=== PATIENT | male | born 1985 | race African-American/Black ===

== ENCOUNTER 2016-12-31 11:36 | Inpatient (IN) | payer SELFPAY ==
[2016-12-31] MEDS ORDERED: Ondansetron ODT TAB* 4 MG PO ONE ×2 (12:41→17:03)
[2016-12-31] MEDS: NS 0.9% 1000 ML* 2,000 ML IV ONE ×2 (13:35→14:27)
[2016-12-31 13:51] LABS: Hematocrit 29 % (42-52); Hemoglobin 9.7 g/dl (14.0-18.0); Mean Corpuscular HGB Conc 34 g/dl (31-36); Mean Corpuscular Hemoglobin 30 pg (27-31); Mean Corpuscular Volume 89 fL (80-94); Mean Platelet Volume 11 um3 (7.4-10.4); Red Blood Count 3.25 10^6/ul (4.0-5.4); Red Cell Distribution Width 14 % (10.5-15); White Blood Count 11.2 10^3/ul (3.5-10.8)
[2016-12-31 14:02] LABS: ALT 15 U/L (7-52); AST 14 U/L (13-39); Alkaline Phosphatase 31 U/L (34-104); Amylase 53 U/L (29-103); Anion Gap 6 mmol/L (2-11); Blood Urea Nitrogen 20 mg/dL (6-24); C Reactive Protein < 1.00 mg/L (< 5.00); CO2 Carbon Dioxide 29 mmol/L (22-32); Calcium 9.1 mg/dL (8.6-10.3); Chloride 103 mmol/L (101-111); EGFR African American 86.6 (>60); EGFR Non-African American 67.4 (>60); Globulin 2.4 g/dL (2-4); Glucose 94 mg/dL (70-100); Lipase 10 U/L (11.0-82.0); Magnesium 1.7 mg/dL (1.9-2.7); Sodium 138 mmol/L (133-145); Total Protein 6.4 g/dL (6.4-8.9)
--- NOTE | 2016-12-31 14:03 | ED ---
Influenza-Like Illness - HPI Summary HPI Summary: Patient presents with nausea, diarrhea, body aches, and chills for two days. He has been unable to keep fluids down or eat. He has tried resting without relief. He denies fever, [place], cough, sore throat or cough. He has mild diffuse abdominal pain he relates to wretching. He denies known ill contacts. - History of Current Complaint Chief Complaint: EDNauseaVomitDiarrh Time Seen by Provider: 12/31/16 12:00 Hx Obtained From: Patient, Family/Boat Wrapper Onset/Duration: Gradual Onset Severity: Moderate Associated Signs & Symptoms: Vomiting, Diarrhea - Allergy/Home Medications Allergies/Adverse Reactions: Allergies Allergy/AdvReac Type Severity Reaction Status Date / Time No Known Allergies Allergy Verified 12/31/16 13:25 PMH/Surg Hx/FS Hx/Imm Hx Previously Healthy: Yes Infectious Disease History: No Infectious Disease History: Denies: Traveled Outside the [place] in Last 30 Days - Family History Known Family History: Positive: None - Social History Occupation: Employed Part-time Lives: With Family Alcohol Use: Occasionally Substance Use Type: Reports: None Smoking Status (MU): Current Some Day Smoker Cessation Counseling: Patient Advised to Stop Review of Systems Positive: Chills, Fatigue Negative: Sore Throat, Ear Ache Negative: Chest Pain Negative: Shortness Of Breath, Cough Positive: Abdominal Pain, Vomiting, Diarrhea, Nausea Positive: no symptoms reported Negative: Myalgia Negative: Headache All Other Systems Reviewed And Are Negative: Yes Physical Exam Triage Information Reviewed: Yes Vital Signs On Initial Exam: Initial Vitals Temp Pulse Resp BP Pulse Ox 97.0 F 115 17 158/83 100 12/31/16 11:39 12/31/16 11:39 12/31/16 11:39 12/31/16 11:39 12/31/16 11:39 Vital Signs Reviewed: Yes Appearance: Positive: Well-Appearing, Well-Nourished, Pain Distress Skin: Positive: Warm, Skin Color Reflects Adequate Perfusion, Dry, Soft Head/Face: Positive: Normal Head/Face Inspection Eyes: Positive: EOMI, SHAHRIAR, Conjunctiva Clear ENT: Positive: Hearing grossly normal, Pharynx normal, TMs normal Neck: Positive: Supple, Nontender, No Lymphadenopathy Respiratory/Lung Sounds: Positive: Clear to Auscultation, Breath Sounds Present Cardiovascular: Positive: Tachycardia Abdomen Description: Positive: Soft. Negative: Nontender - mild diffuse tenderness, CVA Tenderness (R), CVA Tenderness (L), Distended, Guarding, McBurney's Point Tenderness Bowel Sounds: Positive: Present Musculoskeletal: Positive: Strength/ROM Intact. Negative: Edema Left, Edema Right Neurological: Positive: Sensory/Motor Intact, Alert, Oriented to Person Place, Time, NV Bundle Intact Distally, Normal Gait Psychiatric: Positive: Affect/Mood Appropriate AVPU Assessment: Alert Diagnostics - Vital Signs Vital Signs Temp Pulse Resp BP Pulse Ox 12/31/16 13:00 19 123/68 12/31/16 12:44 104 12 100 12/31/16 11:39 97.0 F 115 17 158/83 100 - Laboratory Lab Results: Lab Results 12/31/16 Range/Units 13:37 WBC 11.2 H (3.5-10.8) 10^3/ul RBC 3.25 L (4.0-5.4) 10^6/ul Hgb 9.7 L (14.0-18.0) g/dl Hct 29 L (42-52) % MCV 89 (80-94) fL MCH 30 (27-31) pg MCHC 34 (31-36) g/dl RDW 14 (10.5-15) % Plt Count 146 L (150-450) 10^3/ul MPV 11 H (7.4-10.4) um3 Neut % (Auto) 80.7 (38-83) % Lymph % (Auto) 14.6 L (25-47) % [place]da % (Auto) 4.2 (1-9) % Eos % (Auto) 0.2 (0-6) % Baso % (Auto) 0.3 (0-2) % Absolute Neuts (auto) 9.1 H (1.5-7.7) 10^3/ul Absolute Lymphs (auto) 1.6 (1.0-4.8) 10^3/ul Absolute Monos (auto) 0.5 (0-0.8) 10^3/ul Absolute Eos (auto) 0 (0-0.6) 10^3/ul Absolute Basos (auto) 0 (0-0.2) 10^3/ul Absolute Nucleated RBC 0 10^3/ul Nucleated RBC % 0 Result Diagrams: 12/31/16 13:37 12/31/16 13:37 Lab Statement: Any lab studies that have been ordered have been reviewed, and results considered in the medical decision making process. Re-Evaluation - Re-Evaluation First Eval Re-Evaluation Time: 14:40 Change: Improved - patient feeling better. Asking for food. Second Eval Change: Worse - patient tried eating with continued nausea, tachycardia and hypotension Third Eval Re-Evaluation Time: 16:50 Change: Improved - Patient is able to drink lane raj without nausea Flu Symptom Course/Dx - Diagnoses Differential Diagnosis/HQI/PQRI: Positive: Bronchitis, Broncholiolitis, Influenza, Pneumonia, Upper Respiratory Infection Provider Diagnoses: Gastroenteritis Discharge - Discharge Plan Condition: Stable Disposition: HOME Prescriptions: Ondansetron ODT TAB* [Zofran 4 MG Odt TAB*] 4 mg PO Q6H PRN #20 tab.odt PRN Reason: Nausea Patient Education Materials: Gastroenteritis (ED) Additional Instructions: Use the anti-nausea medication as needed to be able to drink and eat. Get plenty of rest. Return to the emergency department if symptoms worsen.
[2016-12-31 14:04] LABS: Troponin I 0.01 ng/mL (<0.04)
[2016-12-31] MEDS ORDERED: Metoclopramide IV* 5 MG/ML 2 ML VIAL IV ONE (15:45)
[2016-12-31] MEDS ORDERED: NS 0.9% 1000 ML* 1,000 ML IV ONE ×2 (15:45→18:00)
[2016-12-31] MEDS ORDERED: Ketorolac INJ* 30 MG/ML 1 ML VIAL IV ONE (16:03)
[2016-12-31] MEDS ORDERED: Pantoprazole IV* 40 MG IV ONE (18:28)
[2016-12-31] MEDS ORDERED: Morphine INJ* 2 MG/ML 1 ML SYRINGE IV ONE (18:36)
--- NOTE | 2016-12-31 18:44 | PN ---
Progress Note - Progress Note Note: Patient was a patient of Rodolfo Washburn at shift change patient was signed out to me however was being discharged. Upon discharge patient got up to use the bathroom and had an episode of diarrhea that contained blood described as shravan colored and what appeared to be "coffee ground like" per Manjula RN and patient. Patient also had episode of emesis that appeared the same as stool. Was not visualized. Patient also complained of feeling as though he was going to pass out, became tachycardic, hypotensive and diaphoretic. Patient felt as though he was going to pass out and his diffuse abdominal pain worsened. Looking at labs, patient did have low H&H for his age. Stool culture, blood culture and occult blood obtained. Spoke with Dr Yin at 18:30 who will consult and admit. Given morphine for pain, protonix drip and fluids. PE: Cardiac: RRR Resp: Clear normal breath sounds throughout Abdomen: Bowel sounds present, discomfort on palpation throughout, more in epigastric area. No bruits or pulsatile mass. No radiation of pain.
--- NOTE | 2016-12-31 18:54 | ADMNOTE ---
Subjective Date of Service: 12/31/16 Interval History: ADMISSION HISTORY AND PHYSICAL EXAM: Allergies Allergy/AdvReac Type Severity Reaction Status Date / Time No Known Allergies Allergy Verified 12/31/16 13:25 Home Medications Medication Instructions Recorded Confirmed Type Ondansetron ODT TAB* [Zofran 4 MG 4 mg PO Q6H PRN #20 tab.odt 12/31/16 Rx Odt TAB*] HPI: The patient was in his usual state of health until 2 days ago. He developed diarrhea, 4-5 time per day which became bloody. Diffuse abd pain. He denies use of NSAID's including ASA, no alcohol use. Occ cigarette, not daily. Social History: Findings - Lives with girlfrind. 1 child by previous relationship. Occ cigarette. No alcohol abuse. Unemployed. Mother is Past Medical History: Findings - Surgery [facility] about 5 years ago for (?) perforated peptic ulcer. L knee meniscus surgery Review of Systems - Measurements Intake and Output: Intake and Output Last 24 Hours 12/29/16 12/30/16 12/31/16 01/01/17 06:59 06:59 06:59 06:59 Intake Total 2750 Balance 2750 Weight 170 lb Intake: IV Fluids 2750 - Review of Systems Constitutional Symptoms: Negative: Weight Gain, Weight Loss, Weakness, Fatigue, Fever, Night Sweats, Unexplained Falls, Other Dermatology: Positive: Normal HEENT: Positive: Normal Eyes: Positive: Normal Thyroid: Positive: Normal Pulmonary: Positive: Normal Cardiology: Positive: Normal Gastroenterology: Positive: Abdominal Pain, Nausea, Blood in Stools Genital - Urinary: Positive: Normal Musculoskeletal: Negative: Joint Pain, Joint Stiffness, Arthritis, Osteoporosis, Low Back Pain , Sciatica, Joint Deformities, Kyphoscoliosis, Other Endocrinology: Positive: Normal Hematologic/Lymphatic: Positive: Anemia Neurology: Positive: Normal Psychiatry: Positive: Normal Allergic/Immunologic: Negative: Hx Anaphylaxis, Hx Angioedema, Hx Environmental, Hx Seasonal, Athsma, Hx HIV, Immunocompromise, Swollen Glands LymphNodes, Other Objective Active Medications: Sodium Chloride (Ns 0.9% 1000 Ml*) 1,000 mls @ 1,000 mls/hr IV ED ONCE ONE Stop: 12/31/16 18:59 Pantoprazole Sodium 80 mg/ (Sodium Chloride) 250 mls @ 25 mls/hr IVPB Q10H ELBA Vital Signs 12/31/16 12/31/16 12/31/16 11:39 12:25 12:44 Temperature 97.0 F 99.9 F Pulse Rate 115 104 Respiratory 17 12 Rate Blood Pressure 158/83 (mmHg) O2 Sat by Pulse 100 100 Oximetry 12/31/16 12/31/16 12/31/16 13:00 14:00 14:30 Temperature Pulse Rate 100 98 Respiratory 19 Rate Blood Pressure 123/68 127/66 130/67 (mmHg) O2 Sat by Pulse 100 100 Oximetry 12/31/16 12/31/16 12/31/16 15:00 15:30 15:45 Temperature Pulse Rate 100 99 104 Respiratory Rate Blood Pressure 127/107 97/61 94/71 (mmHg) O2 Sat by Pulse 100 100 100 Oximetry 12/31/16 12/31/16 12/31/16 16:00 17:28 17:29 Temperature Pulse Rate 95 107 Respiratory Rate Blood Pressure 116/60 120/71 (mmHg) O2 Sat by Pulse 100 100 Oximetry 12/31/16 17:30 Temperature Pulse Rate 99 Respiratory Rate Blood Pressure (mmHg) O2 Sat by Pulse 100 Oximetry Oxygen Devices in Use Now: None Appearance: Alert, lying on R side on ED stretcher. Somewhat anxious. Eyes: No Scleral Icterus Ears/Nose/Mouth/Throat: Clear Oropharnyx, Mucous Membranes Moist Neck: NL Appearance and Movements; NL JVP, No Thyroid Enlargement, Masses Respiratory: Symmetrical Chest Expansion and Respiratory Effort, Clear to Auscultation, Clear to Percussion Cardiovascular: NL Sounds; No Murmurs; No JVD, RRR - Abdomen , No Edema Abdominal: - - Abd soft, mild diffuse tenderness. Active BS. No mass. Extremities: No Edema, No Clubbing, Cyanosis, - Skin: No Rash or Ulcers, No Nodules or Sclerosis, - Neurological: Alert and Oriented x 3, NL Sensation Result Diagrams: 12/31/16 13:37 12/31/16 13:37 Additional Lab and Data: Lab Results 12/31/16 Range/Units 13:37 WBC 11.2 H (3.5-10.8) 10^3/ul RBC 3.25 L (4.0-5.4) 10^6/ul Hgb 9.7 L (14.0-18.0) g/dl Hct 29 L (42-52) % MCV 89 (80-94) fL MCH 30 (27-31) pg MCHC 34 (31-36) g/dl RDW 14 (10.5-15) % Plt Count 146 L (150-450) 10^3/ul MPV 11 H (7.4-10.4) um3 Neut % (Auto) 80.7 (38-83) % Lymph % (Auto) 14.6 L (25-47) % [place] % (Auto) 4.2 (1-9) % Eos % (Auto) 0.2 (0-6) % Baso % (Auto) 0.3 (0-2) % Absolute Neuts (auto) 9.1 H (1.5-7.7) 10^3/ul Absolute Lymphs (auto) 1.6 (1.0-4.8) 10^3/ul Absolute Monos (auto) 0.5 (0-0.8) 10^3/ul Absolute Eos (auto) 0 (0-0.6) 10^3/ul Absolute Basos (auto) 0 (0-0.2) 10^3/ul Absolute Nucleated RBC 0 10^3/ul Nucleated RBC % 0 Assess/Plan/Problems-Billing Assessment: - Patient Problems (1) GI bleed Current Visit: Yes Status: Acute Code(s): K92.2 - GASTROINTESTINAL HEMORRHAGE, UNSPECIFIED SNOMED Code(s): 22846552 Comment: Records requested from [facility]. His mother states he had laparoscopic surgery there. 2 U PRBC's rapidly then repeat H&H. PT, INR add-on. KUB. Dr. Stephens consulted. ICU care. Central line requested.
[2016-12-31] MEDS: Pantoprazole IV* 80 MG in NS 0.9% 250 ML* 250 ML IVPB SCH (19:33)
--- NOTE | 2016-12-31 19:50 | RAD ---
INDICATION: Abdominal pain, GI bleed. COMPARISON: There are no prior studies available for comparison. TECHNIQUE: Supine and decubitus views of the abdomen were obtained. FINDINGS: The small bowel and colon appear nondistended. There is calcific debris within the bowel. No free intraperitoneal air is seen. There is a cylindrical structure which projects over the pelvis on the right side measuring 10.2 cm in length and 2.8 cm in diameter which which is partly low density consistent with air or fat density. IMPRESSION: 1. NO EVIDENCE FOR OBSTRUCTION. 2. THERE IS A CYLINDRICAL STRUCTURE WHICH PROJECTS OVER THE PELVIS ON THE RIGHT SIDE POSSIBLY EXTERNAL TO THE PATIENT OR WITHIN THE BOWEL, RECOMMEND CLINICAL CORRELATION.
--- NOTE | 2016-12-31 20:33 | CONSULT ---
Consult Consult: I was asked by Dr. Yin to place a central line in Mr. Charles as he has a significant GI bleed and will be being transfused. I spoke with Mr. Charles and he was agreeable. U/S was used to located the femoral vein and artery. He was prepped and draped in the usual fashion. 2% lidocaine was used to anesthetize the area. The femoral vein was again located using U/S and entered. The seldinger technique was utilized to place a 7 fr triple lumen without difficulty and it was sutured in place and dressed. He tolerated the procedure well and remained stable.
[2016-12-31] MEDS: Ondansetron INJ* 2 MG/ML VIAL IV PRN (21:11)
[2017-01-01] MEDS: NS 0.9% 1000 ML* 1,000 ML IV SCH ×2 (00:23→06:30)
[2017-01-01 01:14] LABS: Hematocrit 19 % (42-52); Hemoglobin 6.6 g/dl (14.0-18.0); Mean Corpuscular HGB Conc 34 g/dl (31-36); Mean Corpuscular Hemoglobin 30 pg (27-31); Mean Corpuscular Volume 88 fL (80-94); Mean Platelet Volume 12 um3 (7.4-10.4); Red Blood Count 2.21 10^6/ul (4.0-5.4); Red Cell Distribution Width 14 % (10.5-15); White Blood Count 9.7 10^3/ul (3.5-10.8)
[2017-01-01 01:39] LABS: Comments Flag Yes
[2017-01-01 01:40] LABS: Add Diff/Slide Review? Slide Review Added
[2017-01-01] MEDS: Ondansetron INJ* 2 MG/ML VIAL IV PRN (02:14)
[2017-01-01] MEDS ORDERED: Iohexol 300* (CONTRAST) 10 ML SDV IV ONE (02:38)
[2017-01-01] MEDS: Pantoprazole IV* 80 MG in NS 0.9% 250 ML* 250 ML IVPB SCH ×3 (03:43→22:53)
[2017-01-01 06:22] LABS: Hematocrit 21 % (42-52); Hemoglobin 7.3 g/dl (14.0-18.0); Mean Corpuscular HGB Conc 34 g/dl (31-36); Mean Corpuscular Hemoglobin 29 pg (27-31); Mean Corpuscular Volume 86 fL (80-94); Mean Platelet Volume 10 um3 (7.4-10.4); Red Blood Count 2.49 10^6/ul (4.0-5.4); Red Cell Distribution Width 14 % (10.5-15)
[2017-01-01 06:26] LABS: Comments Flag Yes
[2017-01-01 06:36] LABS: BUN/Creatinine Ratio 15.6 (8-20); Calcium 6.9 mg/dL (8.6-10.3); EGFR African American 101.5 (>60); EGFR Non-African American 78.9 (>60); Potassium 3.8 mmol/L (3.5-5.0)
--- NOTE | 2017-01-01 08:02 | RAD ---
CLINICAL HISTORY: GI bleed. Relevant surgical history includes "surgery for stomach ulcer in 2012". COMPARISON: None TECHNIQUE: Contrast enhanced CT examination of the abdomen and pelvis from the lung bases through the initial tuberosities. The patient received 111 mL Omnipaque 300 intravenously prior to imaging.The patient received oral contrast as well prior to imaging. FINDINGS: VISUALIZED LUNG BASES: The visualized lung bases are grossly clear. There is no pleural effusion. ABDOMEN AND PELVIS: The liver, spleen, pancreas and adrenal glands are grossly normal in appearance. The gallbladder is normal. The kidneys are normal in appearance without focal mass, calcification or signs of hydronephrosis. Oral contrast has progressed only as far as the distal small bowel which prevents more thorough evaluation of the colon. The small and large bowel are not distended. The patient's normal appendix is identified in the right lower quadrant with air filling the lumen (coronal image 43). There is potential surgical material noted at the dependent right paracolic gutter (image 46). There is no gross retroperitoneal or mesenteric lymphadenopathy. The pelvic viscera is normal in appearance. A right common femoral central vein catheter is noted in place. The abdominal aorta and iliac arteries are normal in course and diameter. There are no sinister bone lesions. IMPRESSION: Normal portal venous phase CT of the abdomen and pelvis. This CT examination was not done according to CTA protocol and there is oral contrast present in the proximal gastrointestinal tract which is capable of obscuring intraluminal GI bleed.
[2017-01-01] MEDS ORDERED: NS 0.9% 1000 ML* 1,000 ML IV SCH (08:26)
--- NOTE | 2017-01-01 08:28 | PN ---
Subjective Date of Service: 01/01/17 Interval History: Abdominal pain about the same as yesterday. Pt reports brown stool mixed with blood this AM. No new c/o. Social History: Findings - Lives with girlfrind. 1 child by previous relationship. Occ cigarette. No alcohol abuse. Unemployed. Mother is Past Medical History: Findings - Surgery [facility] about 5 years ago for (?) perforated peptic ulcer. L knee meniscus surgery Objective Active Medications: Pantoprazole Sodium 80 mg/ (Sodium Chloride) 250 mls @ 25 mls/hr IVPB Q10H [facility] Last Admin: 01/01/17 03:43 Dose: 25 mls/hr Sodium Chloride (Ns 0.9% 1000 Ml*) 1,000 mls @ 175 mls/hr IV PER RATE [facility] Last Admin: 01/01/17 06:30 Dose: 175 mls/hr Ondansetron HCl (Zofran Inj*) 4 mg IV Q4H PRN PRN Reason: NAUSEA Last Admin: 01/01/17 02:14 Dose: 4 mg Vital Signs 12/31/16 12/31/16 12/31/16 18:30 19:00 19:09 Temperature Pulse Rate 108 121 Respiratory Rate Blood Pressure 127/58 143/50 119/22 (mmHg) O2 Sat by Pulse 100 96 Oximetry 12/31/16 12/31/16 12/31/16 19:34 19:35 19:54 Temperature Pulse Rate 106 113 103 Respiratory Rate Blood Pressure 113/30 112/38 (mmHg) O2 Sat by Pulse 99 99 100 Oximetry 12/31/16 12/31/16 12/31/16 20:00 20:21 20:30 Temperature Pulse Rate 119 105 Respiratory 17 Rate Blood Pressure 124/43 (mmHg) O2 Sat by Pulse 100 100 Oximetry 12/31/16 12/31/16 12/31/16 20:35 20:39 20:45 Temperature 99.4 F Pulse Rate 111 102 Respiratory 15 22 19 Rate Blood Pressure 130/59 148/106 148/108 (mmHg) O2 Sat by Pulse 100 95 Oximetry 12/31/16 12/31/16 12/31/16 21:00 21:09 21:15 Temperature Pulse Rate 109 96 Respiratory 15 10 16 Rate Blood Pressure 121/67 120/54 (mmHg) O2 Sat by Pulse 100 100 Oximetry 12/31/16 12/31/16 12/31/16 21:30 21:45 22:00 Temperature Pulse Rate 94 94 91 Respiratory 12 15 16 Rate Blood Pressure 110/67 119/57 (mmHg) O2 Sat by Pulse 100 100 100 Oximetry 12/31/16 12/31/16 12/31/16 22:30 23:00 23:30 Temperature Pulse Rate 93 81 84 Respiratory 15 16 15 Rate Blood Pressure 126/58 (mmHg) O2 Sat by Pulse 100 100 100 Oximetry 12/31/16 01/01/17 01/01/17 23:46 00:00 00:01 Temperature 99.1 F Pulse Rate 90 94 Respiratory 11 10 11 Rate Blood Pressure 110/45 (mmHg) O2 Sat by Pulse 100 100 Oximetry 01/01/17 01/01/17 01/01/17 00:05 00:30 00:53 Temperature Pulse Rate 87 85 Respiratory 10 16 22 Rate Blood Pressure (mmHg) O2 Sat by Pulse 100 100 Oximetry 01/01/17 01/01/17 01/01/17 01:00 01:30 02:00 Temperature Pulse Rate 90 98 89 Respiratory 28 17 11 Rate Blood Pressure 120/44 119/48 (mmHg) O2 Sat by Pulse 99 99 100 Oximetry 01/01/17 01/01/17 01/01/17 02:23 02:30 02:43 Temperature Pulse Rate 97 97 96 Respiratory 17 2 16 Rate Blood Pressure 128/53 124/54 (mmHg) O2 Sat by Pulse 100 100 100 Oximetry 01/01/17 01/01/17 01/01/17 03:00 03:30 03:45 Temperature Pulse Rate 99 102 Respiratory 17 18 17 Rate Blood Pressure 124/52 (mmHg) O2 Sat by Pulse 100 100 Oximetry 01/01/17 01/01/17 01/01/17 03:51 04:29 04:30 Temperature 100.7 F Pulse Rate 95 94 Respiratory 18 16 Rate Blood Pressure 128/47 (mmHg) O2 Sat by Pulse 100 100 Oximetry 01/01/17 01/01/17 01/01/17 04:55 05:00 05:30 Temperature Pulse Rate 84 85 Respiratory 18 17 14 Rate Blood Pressure 107/44 (mmHg) O2 Sat by Pulse 99 99 Oximetry 01/01/17 01/01/17 01/01/17 05:53 06:00 06:02 Temperature Pulse Rate 93 90 94 Respiratory 17 18 20 Rate Blood Pressure 108/41 79/38 105/44 (mmHg) O2 Sat by Pulse 100 98 100 Oximetry 01/01/17 01/01/17 01/01/17 06:30 07:00 07:20 Temperature 99.3 F Pulse Rate 83 Respiratory 17 12 Rate Blood Pressure (mmHg) O2 Sat by Pulse 100 Oximetry 01/01/17 01/01/17 01/01/17 07:30 08:00 08:08 Temperature Pulse Rate 85 91 84 Respiratory 11 18 13 Rate Blood Pressure 124/69 (mmHg) O2 Sat by Pulse 100 100 100 Oximetry Oxygen Devices in Use Now: None Appearance: Alert, partly up in ICU bed. In good spirits. Looks comfortable. Eyes: No Scleral Icterus Ears/Nose/Mouth/Throat: Clear Oropharnyx, Mucous Membranes Moist Respiratory: Symmetrical Chest Expansion and Respiratory Effort, Clear to Auscultation, Clear to Percussion Cardiovascular: NL Sounds; No Murmurs; No JVD, RRR, No Edema, - Abdominal: - - mild diffuse abdominal tenderness. Active BS. Soft. Extremities: No Edema, No Clubbing, Cyanosis, - Skin: No Rash or Ulcers, No Nodules or Sclerosis, - Neurological: Alert and Oriented x 3, NL Sensation Result Diagrams: 01/01/17 06:10 01/01/17 06:10 Additional Lab and Data: Lab Results 12/31/16 Range/Units 13:37 WBC 11.2 H (3.5-10.8) 10^3/ul RBC 3.25 L (4.0-5.4) 10^6/ul Hgb 9.7 L (14.0-18.0) g/dl Hct 29 L (42-52) % MCV 89 (80-94) fL MCH 30 (27-31) pg MCHC 34 (31-36) g/dl RDW 14 (10.5-15) % Plt Count 146 L (150-450) 10^3/ul MPV 11 H (7.4-10.4) um3 Neut % (Auto) 80.7 (38-83) % Lymph % (Auto) 14.6 L (25-47) % [place] % (Auto) 4.2 (1-9) % Eos % (Auto) 0.2 (0-6) % Baso % (Auto) 0.3 (0-2) % Absolute Neuts (auto) 9.1 H (1.5-7.7) 10^3/ul Absolute Lymphs (auto) 1.6 (1.0-4.8) 10^3/ul Absolute Monos (auto) 0.5 (0-0.8) 10^3/ul Absolute Eos (auto) 0 (0-0.6) 10^3/ul Absolute Basos (auto) 0 (0-0.2) 10^3/ul Absolute Nucleated RBC 0 10^3/ul Nucleated RBC % 0 Microbiology and Other Data: Microbiology 12/31/16 22:00 Nasal Screen MRSA (PCR)([facility]) - Final Nasal Mrsa Negative 12/31/16 19:00 Stool Gross Appearance - Final Stool 12/31/16 18:35 Stool Occult Blood ([facility]) - Final Stool Assess/Plan/Problems-Billing Assessment: - Patient Problems (1) GI bleed Current Visit: Yes Status: Acute Code(s): K92.2 - GASTROINTESTINAL HEMORRHAGE, UNSPECIFIED SNOMED Code(s): 50716683 Comment: Records requested from [facility]. 6th unit PRBC ordered. Dr. Pierce to do EGD 01/01. Consider surgical consult depending on EGD results. (2) Thrombocytopenia Current Visit: Yes Status: Acute Code(s): D69.6 - THROMBOCYTOPENIA, UNSPECIFIED SNOMED Code(s): 801388504 Comment: Notable that platets sl low on admission. 1 pheresis units ordered. CBC 12:30 and after platelets if not given before 12:30.
--- NOTE | 2017-01-01 08:35 | PN ---
Progress Note - Progress Note Note: Time spent on patient care 45 minutes.
[2017-01-01] MEDS ORDERED: Meperidine SYRINGE* 50 MG/ML ONE (09:09)
[2017-01-01] MEDS ORDERED: Midazolam* 1 MG/ML 10 ML VIAL (10 MG) ONE (09:10)
[2017-01-01] MEDS: Nicotine PATCH 14 MG/24 HR* PATCH TRANSDERM SCH (10:22)
--- NOTE | 2017-01-01 10:47 | CONS ---
CONSULTATION REPORT: DATE OF CONSULT: 01/01/17 PRIMARY CARE PHYSICIAN: None. INDICATION: GI bleed. NARRATIVE: Mr. Charles is a 31-year-old gentleman who has a history of a perforated gastric ulcer in the past. He states he had surgery at [facility]. He had his wisdom teeth removed just prior to that and was taking a large amount of nonsteroidals. This was many years ago. Since that time, he has been doing well. He states on Sunday, he noted some maroon stools per rectum. The patient had been constipated and was taking a "detox" to help with his constipation. He was pushing and straining and noted maroon stools. He also felt very nauseated and did throw up and he believes there was maroon blood in the stool. This continued until yesterday when he came to the emergency room. He was admitted to the hospital for a GI bleed. He continues to vomit maroon blood and have maroon stools. PAST MEDICAL HISTORY: Please see the HPI. PAST SURGICAL HISTORY: Either duodenal ulcer or gastric ulcer oversew. The patient does not know which wisdom teeth removal. CURRENT MEDICATIONS: None. ALLERGIES: None. FAMILY HISTORY: No GI malignancies in the family. REVIEW OF SYSTEMS: Twelve systems were reviewed; other than that mentioned in the HPI, were unremarkable. PHYSICAL EXAM: Temperature is 99.3, blood pressure is 105/44, pulse is 83, O2 sat is 100%. General: Well-appearing male in no apparent distress. Alert, oriented, pleasant, and fluent. HEENT: Mucous membranes are moist without lesions, ulcers or exudate. Neck is supple. Trachea is midline. Head is normocephalic, atraumatic. Heart: Regular rate and rhythm. Lungs: Clear to auscultation. Abdomen: Positive bowel sounds. Soft, very slight tenderness throughout. No rebound, no guarding, no masses were felt. Skin is warm and dry. DIAGNOSTIC STUDIES/LAB DATA: Of note, hemoglobin is 7.3, up from 6.6, down from 9.7. He did receive 4 units of blood overnight. His BUN fell from 20 to 17. His creatinine is normal. His INR also is normal. He is thrombocytopenic with a platelet count of 56. He has a CT from the middle of the night read by the on-call service and was unremarkable. ASSESSMENT AND PLAN: This is a 31-year-old male with a GI bleed. At this point , I cannot determine whether or not it is upper versus lower. Given his history of a perforated upper gastrointestinal ulcer in the past, I would like to begin his evaluation with an upper endoscopy. Unfortunately, he is thrombocytopenic. Given his low platelet count, I may not be able to intervene much. I will make arrangements for his EGD this morning. [id number]/[facility] #: [id number] [facility]
[2017-01-01 13:36] LABS: Hematocrit 25 % (42-52); Hemoglobin 8.3 g/dl (14.0-18.0); Mean Corpuscular HGB Conc 33 g/dl (31-36); Mean Corpuscular Hemoglobin 28 pg (27-31); Mean Corpuscular Volume 85 fL (80-94); Mean Platelet Volume 10 um3 (7.4-10.4); Red Blood Count 2.93 10^6/ul (4.0-5.4); Red Cell Distribution Width 14 % (10.5-15); White Blood Count 14.9 10^3/ul (3.5-10.8)
[2017-01-01 13:43] LABS: Comments Flag Yes
[2017-01-01 13:49] LABS: Magnesium 1.6 mg/dL (1.9-2.7)
[2017-01-01] MEDS ORDERED: Magnesium Sulfate 2 GM IV IVPB ONE (14:40)
[2017-01-01 15:34] LABS: BUN/Creatinine Ratio 11.5 (8-20); Calcium 7.5 mg/dL (8.6-10.3); EGFR African American 97.3 (>60); EGFR Non-African American 75.7 (>60); Potassium 3.7 mmol/L (3.5-5.0)
[2017-01-01] MEDS ORDERED: Acetaminophen TAB* 325 MG PO PRN (18:14)
[2017-01-01] MEDS ORDERED: oxyCODONE TAB* 5 MG TAB PO PRN (18:14)
[2017-01-01] MEDS: Nicotine Patch Removal NOTE PATCH OFF SCH (21:18)
--- NOTE | 2017-01-02 03:29 | PRO ---
DATE OF PROCEDURE: 01/01/17 - ROOM #ICU-04 DATE OF : 85 ENDOSCOPIST: Adrian Pierce MD REFERRING PHYSICIAN: None. PROCEDURE: EGD. INDICATION: Hematemesis. MEDICATIONS GIVEN: 75 mg IV Demerol and 11 mg IV Versed. PROCEDURE: After the EGD procedure including the risks, benefits and alternatives not limited to perforation, surgery, and/or were explained to the patient; written consent was then obtained; IV medication was given; and a biteblock was placed between the teeth. Olympus gastroscope was then inserted into the patient's mouth, advanced down the esophagus, into the stomach , into the distal duodenum. In the esophagus at the GE junction, the Z-line was intact. No erosive esophagitis, stricture, or ring was seen. The scope was advanced through the widely patent GE junction and into the body of the stomach. Retroflexed view and forward view did reveal a numerous clean-based nonbleeding ulcers. He had at least 6 or more. An H. pylori biopsy was obtained. The scope was advanced through a widely patent pylorus, into the duodenal bulb, into the distal duodenum. Numerous smaller ulcers were seen and again they were clean-based and nonbleeding. The scope was withdrawn from the patient. He tolerated to the procedure well and was returned to the care of the ICU staff. IMPRESSION: 1. Complete upper endoscopy into the distal duodenum with biopsies. 2. Numerous gastric and duodenal ulcers, status post biopsy for H. pylori. 3. The patient, his , and mother adamantly deny any nonsteroidal use. I will also check a gastrin level. He should continue with his IV Protonix. We will follow along closely. [id number]/[facility] #: [id number] [facility]
[2017-01-02] MEDS: Pantoprazole IV* 80 MG in NS 0.9% 250 ML* 250 ML IVPB SCH ×3 (05:50→20:57)
[2017-01-02 06:10] LABS: Hematocrit 26 % (42-52); Hemoglobin 8.9 g/dl (14.0-18.0); Mean Corpuscular HGB Conc 34 g/dl (31-36); Mean Corpuscular Hemoglobin 29 pg (27-31); Mean Corpuscular Volume 85 fL (80-94); Mean Platelet Volume 9 um3 (7.4-10.4); Red Blood Count 3.04 10^6/ul (4.0-5.4); Red Cell Distribution Width 15 % (10.5-15)
[2017-01-02 06:15] LABS: Comments Flag Yes
[2017-01-02 06:26] LABS: Calcium 7.8 mg/dL (8.6-10.3); EGFR African American 93.5 (>60); EGFR Non-African American 72.7 (>60); Magnesium 1.7 mg/dL (1.9-2.7); Potassium 3.6 mmol/L (3.5-5.0)
--- NOTE | 2017-01-02 08:06 | PN ---
Subjective Date of Service: 01/02/17 Interval History: Abdominal pain gone. Hungry., BM today less red. No new c/o. Social History: Findings - Lives with girlfrind. 1 child by previous relationship. Occ cigarette. No alcohol abuse. Unemployed. Mother is Past Medical History: Findings - Surgery [facility] about 5 years ago for (?) perforated peptic ulcer. L knee meniscus surgery Objective Active Medications: Acetaminophen (Tylenol Tab*) 650 mg PO Q4H PRN PRN Reason: PAIN Pantoprazole Sodium 80 mg/ (Sodium Chloride) 250 mls @ 25 mls/hr IVPB Q10H [facility] Last Admin: 01/02/17 05:50 Dose: Not Given Magnesium Sulfate 3 gm/ Sodium (Chloride) 106 mls @ 53 mls/hr IVPB ONCE ONE Stop: 01/02/17 09:59 Nicotine (Nicotine Patch 14 Mg/24 Hr*) 1 patch TRANSDERM Q24H [facility] Last Admin: 01/01/17 10:22 Dose: 1 patch Ondansetron HCl (Zofran Inj*) 4 mg IV Q4H PRN PRN Reason: NAUSEA Last Admin: 01/01/17 02:14 Dose: 4 mg Oxycodone HCl (Roxycodone Tab*) 5 mg PO Q4H PRN PRN Reason: PAIN - SEVERE Last Admin: 01/01/17 18:23 Dose: 5 mg Pharmacy Profile Note (Nicotine Patch Removal Note*) 1 note PATCH OFF 2100 [facility] Last Admin: 01/01/17 21:18 Dose: 1 note Vital Signs 01/01/17 01/01/17 01/01/17 08:08 08:30 09:00 Temperature Pulse Rate 84 88 89 Respiratory 13 16 17 Rate Blood Pressure 124/69 126/54 (mmHg) O2 Sat by Pulse 100 100 100 Oximetry 01/01/17 01/01/17 01/01/17 09:30 09:33 09:35 Temperature Pulse Rate 84 89 91 Respiratory 14 18 20 Rate Blood Pressure 113/54 111/52 (mmHg) O2 Sat by Pulse 100 100 100 Oximetry 01/01/17 01/01/17 01/01/17 09:40 09:45 09:50 Temperature Pulse Rate 94 94 120 Respiratory 18 19 18 Rate Blood Pressure 119/54 99/55 142/50 (mmHg) O2 Sat by Pulse 99 97 98 Oximetry 01/01/17 01/01/17 01/01/17 09:55 10:00 10:05 Temperature Pulse Rate 97 96 98 Respiratory 19 17 19 Rate Blood Pressure 100/48 105/40 116/41 (mmHg) O2 Sat by Pulse 98 98 97 Oximetry 01/01/17 01/01/17 01/01/17 10:10 10:15 10:20 Temperature Pulse Rate 95 94 Respiratory 19 19 Rate Blood Pressure 111/52 103/43 109/46 (mmHg) O2 Sat by Pulse 97 97 Oximetry 01/01/17 01/01/17 01/01/17 10:25 10:30 10:45 Temperature Pulse Rate 96 102 103 Respiratory 18 19 24 Rate Blood Pressure 111/46 118/54 122/59 (mmHg) O2 Sat by Pulse 97 100 100 Oximetry 01/01/17 01/01/17 01/01/17 11:00 11:15 11:30 Temperature Pulse Rate 92 80 Respiratory 16 20 Rate Blood Pressure 117/64 113/57 (mmHg) O2 Sat by Pulse 100 100 Oximetry 01/01/17 01/01/17 01/01/17 11:44 12:00 12:30 Temperature 99 F Pulse Rate 77 85 Respiratory 19 17 Rate Blood Pressure 108/54 (mmHg) O2 Sat by Pulse 100 100 Oximetry 01/01/17 01/01/17 01/01/17 13:00 13:30 14:00 Temperature Pulse Rate 89 90 94 Respiratory 24 19 17 Rate Blood Pressure 115/56 113/54 (mmHg) O2 Sat by Pulse 100 100 100 Oximetry 01/01/17 01/01/17 01/01/17 14:30 15:00 15:30 Temperature Pulse Rate 83 87 89 Respiratory 21 20 18 Rate Blood Pressure 120/53 (mmHg) O2 Sat by Pulse 100 100 100 Oximetry 01/01/17 01/01/17 01/01/17 16:00 16:30 17:00 Temperature 98.4 F Pulse Rate 95 77 90 Respiratory 17 21 22 Rate Blood Pressure 111/54 (mmHg) O2 Sat by Pulse 100 100 100 Oximetry 01/01/17 01/01/17 01/01/17 17:21 17:30 18:00 Temperature Pulse Rate 82 84 90 Respiratory 20 18 23 Rate Blood Pressure 127/67 125/62 107/44 (mmHg) O2 Sat by Pulse 100 100 100 Oximetry 01/01/17 01/01/1717 18:30 19:00 19:30 Temperature Pulse Rate 92 87 82 Respiratory 21 21 19 Rate Blood Pressure 157/122 (mmHg) O2 Sat by Pulse 94 100 97 Oximetry 01/01/17 01/01/17 01/01/17 20:00 20:30 20:40 Temperature Pulse Rate 87 89 Respiratory 18 17 18 Rate Blood Pressure 112/52 (mmHg) O2 Sat by Pulse 100 100 Oximetry 01/01/17 01/01/17 01/01/17 21:00 21:30 22:00 Temperature Pulse Rate 97 90 107 Respiratory 17 19 18 Rate Blood Pressure 104/57 (mmHg) O2 Sat by Pulse 100 100 97 Oximetry 01/01/17 01/01/17 01/01/17 22:30 22:34 23:00 Temperature Pulse Rate 98 89 88 Respiratory 21 17 19 Rate Blood Pressure 125/59 118/56 (mmHg) O2 Sat by Pulse 98 99 96 Oximetry 01/01/17 01/02/17 01/02/17 23:30 00:00 00:01 Temperature Pulse Rate 91 80 81 Respiratory 15 17 18 Rate Blood Pressure 110/48 (mmHg) O2 Sat by Pulse 100 95 95 Oximetry 01/02/17 01/02/17 01/02/17 00:30 01:00 01:30 Temperature Pulse Rate 77 82 67 Respiratory 18 18 18 Rate Blood Pressure 119/42 (mmHg) O2 Sat by Pulse 95 94 96 Oximetry 01/02/17 01/02/17 01/02/17 02:00 02:30 03:00 Temperature Pulse Rate 70 74 73 Respiratory 24 11 15 Rate Blood Pressure 114/39 104/32 (mmHg) O2 Sat by Pulse 97 96 97 Oximetry 01/02/17 01/02/17 01/02/17 03:13 03:30 04:00 Temperature 99.2 F Pulse Rate 70 75 Respiratory 16 19 Rate Blood Pressure (mmHg) O2 Sat by Pulse 98 98 Oximetry 01/02/17 01/02/17 01/02/17 04:30 04:31 05:00 Temperature Pulse Rate 72 71 74 Respiratory 17 18 5 Rate Blood Pressure 118/39 112/30 (mmHg) O2 Sat by Pulse 97 96 98 Oximetry 01/02/17 01/02/17 01/02/17 05:30 06:00 06:30 Temperature Pulse Rate 68 78 82 Respiratory 17 15 18 Rate Blood Pressure (mmHg) O2 Sat by Pulse 100 99 99 Oximetry 01/02/17 01/02/17 01/02/17 06:39 07:00 07:50 Temperature 98.6 F Pulse Rate 82 75 Respiratory 15 9 Rate Blood Pressure 110/46 107/43 (mmHg) O2 Sat by Pulse 99 100 Oximetry Oxygen Devices in Use Now: None Appearance: Alert, sitting up in ICU bed. In good spirits. Looks comfortable. Eyes: No Scleral Icterus Ears/Nose/Mouth/Throat: Clear Oropharnyx, Mucous Membranes Moist Neck: NL Appearance and Movements; NL JVP, No Thyroid Enlargement, Masses Respiratory: Symmetrical Chest Expansion and Respiratory Effort, Clear to Auscultation, Clear to Percussion Cardiovascular: NL Sounds; No Murmurs; No JVD, RRR, No Edema, - Extremities: No Edema, No Clubbing, Cyanosis, - Skin: No Rash or Ulcers, No Nodules or Sclerosis, - Neurological: Alert and Oriented x 3, NL Sensation Result Diagrams: 01/02/17 05:55 01/02/17 05:55 Additional Lab and Data: Lab Results 12/31/16 Range/Units 13:37 WBC 11.2 H (3.5-10.8) 10^3/ul RBC 3.25 L (4.0-5.4) 10^6/ul Hgb 9.7 L (14.0-18.0) g/dl Hct 29 L (42-52) % MCV 89 (80-94) fL MCH 30 (27-31) pg MCHC 34 (31-36) g/dl RDW 14 (10.5-15) % Plt Count 146 L (150-450) 10^3/ul MPV 11 H (7.4-10.4) um3 Neut % (Auto) 80.7 (38-83) % Lymph % (Auto) 14.6 L (25-47) % [place] % (Auto) 4.2 (1-9) % Eos % (Auto) 0.2 (0-6) % Baso % (Auto) 0.3 (0-2) % Absolute Neuts (auto) 9.1 H (1.5-7.7) 10^3/ul Absolute Lymphs (auto) 1.6 (1.0-4.8) 10^3/ul Absolute Monos (auto) 0.5 (0-0.8) 10^3/ul Absolute Eos (auto) 0 (0-0.6) 10^3/ul Absolute Basos (auto) 0 (0-0.2) 10^3/ul Absolute Nucleated RBC 0 10^3/ul Nucleated RBC % 0 Microbiology and Other Data: Microbiology 12/31/16 22:00 Nasal Screen MRSA (PCR)([facility]) - Final Nasal Mrsa Negative 12/31/16 19:00 Stool Gross Appearance - Final Stool 12/31/16 18:35 Stool Occult Blood ([facility]) - Final Stool Assess/Plan/Problems-Billing Assessment: - Patient Problems (1) GI bleed Current Visit: Yes Status: Acute Code(s): K92.2 - GASTROINTESTINAL HEMORRHAGE, UNSPECIFIED SNOMED Code(s): 97476985 Comment: Records requested from [facility]. Patient received total 6U PRBC, 1 pheresis unit platelets. EGD showed multiple ulcers stomach and duodenum, not bleeding. Gastrin level pending. Continue IV pantoprazole through 01/03. Advance diet. D/C central line. (2) Thrombocytopenia Current Visit: Yes Status: Acute Code(s): D69.6 - THROMBOCYTOPENIA, UNSPECIFIED SNOMED Code(s): 433331637 Comment: Notable that platets sl low on admission. 1 pheresis units given. Platelet count increased 01/02, needs outpt fup.
[2017-01-02] MEDS: Nicotine PATCH 14 MG/24 HR* PATCH TRANSDERM SCH (08:59)
--- NOTE | 2017-01-02 14:52 | PN ---
Progress Note - Progress Note Note: Additional diagnosis: On 12/31 while in the ED, patient was in hemorrhagic shock.
[2017-01-02] MEDS: Nicotine Patch Removal NOTE PATCH OFF SCH (20:35)
[2017-01-02] MEDS ORDERED: NS 0.9% 250 ML* 250 ML ONE (20:37)
[2017-01-03 05:05] VITALS: BP 103/51
[2017-01-03 06:06] LABS: Hematocrit 28 % (42-52); Hemoglobin 9.4 g/dl (14.0-18.0); Mean Corpuscular HGB Conc 34 g/dl (31-36); Mean Corpuscular Hemoglobin 29 pg (27-31); Mean Corpuscular Volume 85 fL (80-94); Mean Platelet Volume 10 um3 (7.4-10.4); Red Blood Count 3.22 10^6/ul (4.0-5.4); Red Cell Distribution Width 15 % (10.5-15); White Blood Count 7.5 10^3/ul (3.5-10.8)
[2017-01-03] MEDS: Pantoprazole IV* 80 MG in NS 0.9% 250 ML* 250 ML IVPB SCH (07:28)
--- NOTE | 2017-01-03 07:37 | DCNOTE ---
Subjective Date of Service: 01/03/17 Interval History: BM much less red today. No pain. No new c/o. Social History: Findings - Lives with girlfrind. 1 child by previous relationship. Occ cigarette. No alcohol abuse. Unemployed. Mother is Past Medical History: Findings - Surgery [facility] about 5 years ago for (?) perforated peptic ulcer. L knee meniscus surgery Objective Active Medications: Acetaminophen (Tylenol Tab*) 650 mg PO Q4H PRN PRN Reason: PAIN Nicotine (Nicotine Patch 14 Mg/24 Hr*) 1 patch TRANSDERM Q24H [facility] Last Admin: 01/02/17 08:59 Dose: 1 patch Omeprazole (Prilosec Cap*) 20 mg PO BID [facility] Ondansetron HCl (Zofran Inj*) 4 mg IV Q4H PRN PRN Reason: NAUSEA Last Admin: 01/01/17 02:14 Dose: 4 mg Oxycodone HCl (Roxycodone Tab*) 5 mg PO Q4H PRN PRN Reason: PAIN - SEVERE Last Admin: 01/01/17 18:23 Dose: 5 mg Pharmacy Profile Note (Nicotine Patch Removal Note*) 1 note PATCH OFF 2100 [facility] Last Admin: 01/02/17 20:35 Dose: 1 note Vital Signs 01/02/17 01/02/17 01/02/17 07:50 08:00 10:13 Temperature 98.6 F 97.8 F Pulse Rate 86 73 Respiratory 18 16 Rate Blood Pressure 118/76 131/61 (mmHg) O2 Sat by Pulse 98 100 Oximetry 01/02/17 01/02/17 01/02/17 10:15 11:26 15:27 Temperature 97.8 F 98.0 F 98.0 F Pulse Rate 73 85 105 Respiratory 16 17 Rate Blood Pressure 131/61 122/55 141/72 (mmHg) O2 Sat by Pulse 100 100 100 Oximetry 01/02/17 01/02/17 01/02/17 20:00 20:33 23:41 Temperature 97.8 F 98.1 F Pulse Rate 76 58 Respiratory 18 18 16 Rate Blood Pressure 136/66 121/55 (mmHg) O2 Sat by Pulse 100 99 Oximetry 01/03/17 05:03 Temperature 97.9 F Pulse Rate 65 Respiratory 17 Rate Blood Pressure 103/51 (mmHg) O2 Sat by Pulse 99 Oximetry Oxygen Devices in Use Now: None Appearance: Alert, in good spirits. Sitting up in bed. Looks comfortable. Eyes: No Scleral Icterus Extremities: No Edema, No Clubbing, Cyanosis, - Skin: No Rash or Ulcers, No Nodules or Sclerosis, - Neurological: Alert and Oriented x 3, NL Sensation Result Diagrams: 01/03/17 05:40 01/02/17 05:55 Additional Lab and Data: Lab Results 12/31/16 Range/Units 13:37 WBC 11.2 H (3.5-10.8) 10^3/ul RBC 3.25 L (4.0-5.4) 10^6/ul Hgb 9.7 L (14.0-18.0) g/dl Hct 29 L (42-52) % MCV 89 (80-94) fL MCH 30 (27-31) pg MCHC 34 (31-36) g/dl RDW 14 (10.5-15) % Plt Count 146 L (150-450) 10^3/ul MPV 11 H (7.4-10.4) um3 Neut % (Auto) 80.7 (38-83) % Lymph % (Auto) 14.6 L (25-47) % [place] % (Auto) 4.2 (1-9) % Eos % (Auto) 0.2 (0-6) % Baso % (Auto) 0.3 (0-2) % Absolute Neuts (auto) 9.1 H (1.5-7.7) 10^3/ul Absolute Lymphs (auto) 1.6 (1.0-4.8) 10^3/ul Absolute Monos (auto) 0.5 (0-0.8) 10^3/ul Absolute Eos (auto) 0 (0-0.6) 10^3/ul Absolute Basos (auto) 0 (0-0.2) 10^3/ul Absolute Nucleated RBC 0 10^3/ul Nucleated RBC % 0 Microbiology and Other Data: Microbiology 12/31/16 22:00 Nasal Screen MRSA (PCR)([facility]) - Final Nasal Mrsa Negative 12/31/16 19:00 Stool Gross Appearance - Final Stool 12/31/16 18:35 Stool Occult Blood ([facility]) - Final Stool Assess/Plan/Problems-Billing Assessment: - Patient Problems (1) GI bleed Current Visit: Yes Status: Acute Code(s): K92.2 - GASTROINTESTINAL HEMORRHAGE, UNSPECIFIED SNOMED Code(s): 43173830 Comment: Records requested from [facility]. Patient received total 6U PRBC, 1 pheresis unit platelets. EGD showed multiple ulcers stomach and duodenum, not bleeding. Gastrin level 198. Rx omeprazole 20 mg bid, first dose now. (2) Thrombocytopenia Current Visit: Yes Status: Acute Code(s): D69.6 - THROMBOCYTOPENIA, UNSPECIFIED SNOMED Code(s): 967628220 Comment: Notable that platets sl low on admission. 1 pheresis units given. Platelet count increased 01/03 again, needs outpt fup. (3) Tobacco abuse Current Visit: Yes Status: Acute Code(s): Z72.0 - TOBACCO USE SNOMED Code( s): 552935780 Comment: Pt advised to quit smoking and avoid second hand smoke. Advised to continue nicotine patch.
--- NOTE | 2017-01-03 07:38 | PN ---
Progress Note - Progress Note Note: Time spent on discharge 35 minutes.
--- NOTE | 2017-01-03 08:46 | DS ---
DISCHARGE SUMMARY: DATE OF ADMISSION: 12/31/16 DATE OF DISCHARGE: 01/03/17 HOSPITAL COURSE: This 31-year-old man presented with a 2-day history of diarrhea, which rapidly became bloody. He had diffuse abdominal pain as well. The rest of the history and physical exam are in the admission note. Of note, the patient had laparoscopic surgery at [facility] about 5 years ago for a perforated ulcer. The patient was admitted to intensive care unit. He received 6 units of packed cells and 1 pheresis unit of platelets. His platelet count started at 146, it went down to 56 after 4 units of blood. After pheresis units of platelets it remi to 81. On the day of discharge his platelet count was 113. His hemoglobin started at 9.7, went to a low of 6.6, and was 9.4 on the day of discharge. By the day of discharge, his stools where much less red, mostly brown. He was feeling quite well, his appetite was good. The patient underwent endoscopy on the second hospital day. There were multiple ulcers in the stomach and duodenum and noticed gastrin level was 198, this was after he had been started on the pantoprazole drip. The patient has good understanding of health habits needed to reduce his chance of recurrent ulcers. He does not use NSAIDs or aspirin or drink alcohol excessively. He is working on quitting smoking. FINAL DIAGNOSES: 1. Peptic ulcer disease. 2. Thrombocytopenia. 3. Tobacco use disorder. DISCHARGE MEDICATIONS: 1. Omeprazole 20 mg b.i.d. 2. Nicotine patch 14 mg per day. 3. Acetaminophen 650 mg every 4 hours p.r.n. CC: Dr. Pierce* [id number]/[facility] #: [id number] [facility]
[2017-01-03] MEDS ORDERED: Omeprazole CAP* 20 MG PO SCH (09:00)
[2017-01-03] MEDS: Nicotine PATCH 14 MG/24 HR* PATCH TRANSDERM SCH (09:29)
== END 2017-01-03 09:15 | disposition home or self-care (01) | DRG 377 ==
LOC: ED 11:36 → ICU 18:28 → MED 01-02 10:10
PROVIDERS: ADMIT Internal Medicine; ATTEND Internal Medicine
PROC: 30233N1 Transfusion of Nonautologous Red Blood Cells into Peripheral Vein, Percutaneous Approach (ICD-10-PCS; 2016-12-31)
PROC: 06HM33Z Insertion of Infusion Device into Right Femoral Vein, Percutaneous Approach (ICD-10-PCS; 2016-12-31)
PROC: B54BZZA Ultrasonography of Right Lower Extremity Veins, Guidance (ICD-10-PCS; 2016-12-31)
PROC: 0DB68ZX Excision of Stomach, Via Natural or Artificial Opening Endoscopic, Diagnostic (ICD-10-PCS; principal; 2017-01-01)
PROC: 30233R1 Transfusion of Nonautologous Platelets into Peripheral Vein, Percutaneous Approach (ICD-10-PCS; 2017-01-01)
DX: K92.1 Melena (principal); R57.8 Other shock; D62 Acute posthemorrhagic anemia; D69.6 Thrombocytopenia, unspecified; F17.210 Nicotine dependence, cigarettes, uncomplicated; Z79.899 Other long term (current) drug therapy
CPT/HCPCS: 36415; 74020; 74177; 80048; 80053; 82150; 82270; 82941; 83605; 83690; 83735; 84484; 85025; 85060; 85610; 86140; 86850; 86900; 86901; 86922; 87040; 87045; 87046; 87077; 87147; 87641; 87899; 93005; 99406; A9270-GY; J1885; J2250; J2270; J2405; J3475; P9035; P9040; Q9967

== ENCOUNTER → 2017-01-24 16:59 | Emergency (ER) | payer SELFPAY ==
[2017-01-24 17:19] VITALS: BP 133/66
--- NOTE | 2017-01-24 17:44 | ED ---
Laceration/Wound HPI - HPI Summary HPI Summary: 31M presents for suture removal. He had a suture placed for a femoral catheter placement for GI surgery. The suture was suppose to be dissolvable but never dissolved. He denies any pain or signs of infection. He denies any fever. - History of Current Complaint Stated Complaint: SUTURE REMOVAL Time Seen by Provider: 01/24/17 17:34 Pain Intensity: 0 - Additional Pertinent History Primary Care Physician: TRUONG - Allergy/Home Medications Allergies/Adverse Reactions: Allergies Allergy/AdvReac Type Severity Reaction Status Date / Time No Known Allergies Allergy Verified 12/31/16 13:25 PMH/Surg Hx/FS Hx/Imm Hx Endocrine/Hematology History: Denies: Hx Diabetes Cardiovascular History: Denies: Hx Hypertension GI History: Reports: Hx Gastroesophageal Reflux Disease, Hx Ulcer History: Denies: Hx Dialysis, Hx Renal Disease Musculoskeletal History: Denies: Hx Arthritis, Hx Osteoporosis Sensory History: Denies: Hx Contacts or Glasses, Hx Hearing Aid Opthamlomology History: Denies: Hx Contacts or Glasses - Surgical History Surgery Procedure, Year, and Place: Surgery for stomach ulcer in 2011 Hx Anesthesia Reactions: No Infectious Disease History: No Infectious Disease History: Denies: Traveled Outside the [place] in Last 30 Days - Family History Known Family History: Positive: None Negative: Cardiac Disease - Social History Alcohol Use: Occasionally Hx Substance Use: Yes Substance Use Type: Reports: Marijuana Hx Tobacco Use: Yes Smoking Status (MU): Current Some Day Smoker Type: Cigarettes Have You Smoked in the Last Year: Yes Review of Systems Negative: Fever Negative: Chest Pain Negative: Shortness Of Breath Positive: Other - suture left groin All Other Systems Reviewed And Are Negative: Yes Physical Exam Triage Information Reviewed: Yes Vital Signs On Initial Exam: Initial Vitals Temp Pulse Resp BP Pulse Ox 98.0 F 73 16 133/66 100 01/24/17 17:15 01/24/17 17:15 01/24/17 17:15 01/24/17 17:15 01/24/17 17:15 Vital Signs Reviewed: Yes Appearance: Positive: Well-Appearing Skin: Positive: Warm, Dry, Other - 1 suture left groin area Head/Face: Positive: Normal Head/Face Inspection Eyes: Positive: Normal, Conjunctiva Clear Respiratory/Lung Sounds: Positive: Clear to Auscultation, Breath Sounds Present Cardiovascular: Positive: Normal, RRR Diagnostics - Vital Signs Vital Signs Temp Pulse Resp BP Pulse Ox 01/24/17 17:15 98.0 F 65 16 133/66 100 - Laboratory Lab Statement: Any lab studies that have been ordered have been reviewed, and results considered in the medical decision making process. Laceration Repair Course/Dx - Course Course Of Treatment: 31M presents with removal of stitch from right groin. had placed two weeks ago and was suppose to dissolve but never did. no sign of infection on exam. nurse removed suture. patient understands and agrees with plan - Differential Dx Differental Diagnoses: Suture Removal - Clinical Impression Provider Diagnoses: Encounter for removal of sutures Discharge - Discharge Plan Condition: Good Disposition: HOME Patient Education Materials: Stitches Removal (ED) Referrals: No Primary Care Phys,NOPCP [Primary Care Provider] - Additional Instructions: return to ED if develop any new or worsening symptoms
== END | disposition home or self-care (01) ==
LOC: ED 16:59
DX: Z48.02 Encounter for removal of sutures (principal); Z72.0 Tobacco use
CPT/HCPCS: 99281

== ENCOUNTER 2017-11-10 10:29 | Emergency (ER) | payer SELFPAY ==
[2017-11-10] MEDS ORDERED: Pantoprazole IV* 40 MG IV ONE (10:58)
[2017-11-10] MEDS ORDERED: NS 0.9% 1000 ML* 1,000 ML IV ONE (10:58)
[2017-11-10 11:57] LABS: Hematocrit 45 % (42-52); Hemoglobin 14.9 g/dl (14.0-18.0); Mean Corpuscular HGB Conc 33 g/dl (31-36); Mean Corpuscular Hemoglobin 27 pg (27-31); Mean Corpuscular Volume 83 fL (80-94); Red Blood Count 5.44 10^6/ul (4.0-5.4); Red Cell Distribution Width 20 % (10.5-15); White Blood Count 3.9 10^3/ul (3.5-10.8)
[2017-11-10 11:59] LABS: INR 0.98 (0.77-1.02)
[2017-11-10 12:09] LABS: EGFR Non-African American 70.2 (>60)
[2017-11-10 12:18] LABS: ABS Basophils 0 10^3/ul (0-0.2); ABS Eosinophils 0.1 10^3/ul (0-0.6); ABS Lymphocytes 1.5 10^3/ul (1.0-4.8); ABS Monocytes 0.3 10^3/ul (0-0.8); ABS Neutrophils 1.9 10^3/ul (1.5-7.7); ABS Nucleated RBC 0 10^3/ul; Eosinophil % 3.2 % (0-6); Lymphocyte % 39.1 % (25-47); Mean Platelet Volume 10.6 um3 (7.4-10.4); Nucleated Red Blood Cells % 0.1; Platelet Count 150 10^3/ul (150-450)
--- NOTE | 2017-11-10 14:14 | ED ---
Marry Cheng Elizabeth, scribed for Turner Devi on 11/10/17 at 1107 . GI/ HPI - HPI Summary HPI Summary: The patient is a 32 year old male complaining of dark blood in stool and hematemesis that began last night. The patient additionally complains of nausea, abdominal pain, cold sweats, diarrhea, and emesis 4x since last night. The patient has a history of stomach ulcers. - History of Current Complaint Chief Complaint: EDGIBleed Time Seen by Provider: 11/10/17 10:49 Stated Complaint: ABD PAIN/VOMITING Hx Obtained From: Patient Onset/Duration: Started Days Ago - started 1 day ago, Still Present Timing: Intermittent Severity: Mild Current Severity: Mild Pain Intensity: 0 Associated Signs and Symptoms: Positive: Hematemesis, Nausea, Vomiting, Blood w/ Stool, Diarrhea, Diaphoresis Aggravating Factor(s): Nothing Alleviating Factor(s): Nothing - Additional Pertinent History Primary Care Physician: TRUONG - Allergy/Home Medications Allergies/Adverse Reactions: Allergies Allergy/AdvReac Type Severity Reaction Status Date / Time ondansetron Allergy Agitation Verified 11/10/17 10:31 [From Zofran (as hydrochloride)] PMH/Surg Hx/FS Hx/Imm Hx Endocrine/Hematology History: Denies: Hx Diabetes Cardiovascular History: Denies: Hx Hypertension GI History: Reports: Hx Gastroesophageal Reflux Disease, Hx Ulcer History: Denies: Hx Dialysis, Hx Renal Disease Musculoskeletal History: Denies: Hx Arthritis, Hx Osteoporosis Sensory History: Denies: Hx Contacts or Glasses, Hx Hearing Aid Opthamlomology History: Denies: Hx Contacts or Glasses - Surgical History Surgery Procedure, Year, and Place: Surgery for stomach ulcer in 2012 Hx Anesthesia Reactions: No Infectious Disease History: No Infectious Disease History: Denies: Traveled Outside the [place] in Last 30 Days - Family History Known Family History: Positive: None Negative: Cardiac Disease - Social History Alcohol Use: Occasionally Hx Substance Use: Yes Substance Use Type: Reports: Marijuana Hx Tobacco Use: Yes Smoking Status (MU): Current Some Day Smoker Type: Cigarettes Have You Smoked in the Last Year: Yes Review of Systems Positive: Chills, Skin Diaphoresis Positive: Abdominal Pain, Vomiting, Diarrhea, Nausea Positive: other - blood in stool All Other Systems Reviewed And Are Negative: Yes Physical Exam - Summary Physical Exam Summary: Appearance: Well appearing, no pain distress Skin: warm, dry, reflects adequate perfusion Head/face: normal Eyes: EOMI, SHAHRIAR ENT: normal Neck: supple, non-tender Respiratory: CTA, breath sounds present Cardiovascular: RRR, pulses symmetrical Abdomen: non-tender, soft Bowel: present Musculoskeletal: normal, strength/ROM intact Neuro: normal, sensory motor intact, A&Ox3 Triage Information Reviewed: Yes Vital Signs On Initial Exam: Initial Vitals Temp Pulse Resp BP Pulse Ox 96.7 F 84 16 126/80 100 11/10/17 10:32 11/10/17 10:32 11/10/17 10:32 11/10/17 10:32 11/10/17 10:32 Vital Signs Reviewed: Yes Diagnostics - Vital Signs Vital Signs Temp Pulse Resp BP Pulse Ox 11/10/17 10:32 96.7 F 84 16 126/80 100 - Laboratory Lab Results: Lab Results 11/10/17 11/10/17 11/10/17 Range/Units 11:44 11:44 11:44 WBC 3.9 (3.5-10.8) 10^3/ul RBC 5.44 H (4.0-5.4) 10^6/ul Hgb 14.9 (14.0-18.0) g/dl Hct 45 (42-52) % MCV 83 (80-94) fL MCH 27 (27-31) pg MCHC 33 (31-36) g/dl RDW 20 H (10.5-15) % Plt Count 150 (150-450) 10^3/ul MPV 10.6 H (7.4-10.4) um3 Neut % (Auto) 48.6 (38-83) % Lymph % (Auto) 39.1 (25-47) % [place] % (Auto) 8.1 H (0-7) % Eos % (Auto) 3.2 (0-6) % Baso % (Auto) 1.0 (0-2) % Absolute Neuts (auto) 1.9 (1.5-7.7) 10^3/ul Absolute Lymphs (auto) 1.5 (1.0-4.8) 10^3/ul Absolute Monos (auto) 0.3 (0-0.8) 10^3/ul Absolute Eos (auto) 0.1 (0-0.6) 10^3/ul Absolute Basos (auto) 0 (0-0.2) 10^3/ul Absolute Nucleated RBC 0 10^3/ul Nucleated RBC % 0.1 INR (Anticoag Therapy) (0.77-1.02) APTT (26.0-36.3) seconds Sodium 138 (133-145) mmol/L Potassium 4.0 (3.5-5.0) mmol/L Chloride 104 (101-111) mmol/L Carbon Dioxide 28 (22-32) mmol/L Anion Gap 6 (2-11) mmol/L BUN 11 (6-24) mg/dL Creatinine 1.20 H (0.67-1.17) mg/dL Est GFR ( Amer) 90.2 (>60) Est GFR (Non-Af Amer) 70.2 (>60) BUN/Creatinine Ratio 9.2 (8-20) Glucose 77 (70-100) mg/dL Lactic Acid 1.1 (0.5-2.0) mmol/L Calcium 9.2 (8.6-10.3) mg/dL Total Bilirubin 0.60 (0.2-1.0) mg/dL AST 16 (13-39) U/L ALT 13 (7-52) U/L Alkaline Phosphatase 39 (34-104) U/L Total Protein 7.4 (6.4-8.9) g/dL Albumin 4.4 (3.2-5.2) g/dL Globulin 3.0 (2-4) g/dL Albumin/Globulin Ratio 1.5 (1-3) Lipase 18 (11.0-82.0) U/L Blood Type Antibody Screen 11/10/17 11/10/17 Range/Units 11:44 11:44 WBC (3.5-10.8) 10^3/ul RBC (4.0-5.4) 10^6/ul Hgb (14.0-18.0) g/dl Hct (42-52) % MCV (80-94) fL MCH (27-31) pg MCHC (31-36) g/dl RDW (10.5-15) % Plt Count (150-450) 10^3/ul MPV (7.4-10.4) um3 Neut % (Auto) (38-83) % Lymph % (Auto) (25-47) % [place] % (Auto) (0-7) % Eos % (Auto) (0-6) % Baso % (Auto) (0-2) % Absolute Neuts (auto) (1.5-7.7) 10^3/ul Absolute Lymphs (auto) (1.0-4.8) 10^3/ul Absolute Monos (auto) (0-0.8) 10^3/ul Absolute Eos (auto) (0-0.6) 10^3/ul Absolute Basos (auto) (0-0.2) 10^3/ul Absolute Nucleated RBC 10^3/ul Nucleated RBC % INR (Anticoag Therapy) 0.98 (0.77-1.02) APTT 32.3 (26.0-36.3) seconds Sodium (133-145) mmol/L Potassium (3.5-5.0) mmol/L Chloride (101-111) mmol/L Carbon Dioxide (22-32) mmol/L Anion Gap (2-11) mmol/L BUN (6-24) mg/dL Creatinine (0.67-1.17) mg/dL Est GFR ( Amer) (>60) Est GFR (Non-Af Amer) (>60) BUN/Creatinine Ratio (8-20) Glucose (70-100) mg/dL Lactic Acid (0.5-2.0) mmol/L Calcium (8.6-10.3) mg/dL Total Bilirubin (0.2-1.0) mg/dL AST (13-39) U/L ALT (7-52) U/L Alkaline Phosphatase (34-104) U/L Total Protein (6.4-8.9) g/dL Albumin (3.2-5.2) g/dL Globulin (2-4) g/dL Albumin/Globulin Ratio (1-3) Lipase (11.0-82.0) U/L Blood Type A Positive Antibody Screen Negative Result Diagrams: 11/10/17 11:44 11/10/17 11:44 Lab Statement: Any lab studies that have been ordered have been reviewed, and results considered in the medical decision making process. GIGU Course/Dx - Course Course Of Treatment: Patient came in to the ED vomiting blood. He had no emesis episodes while present. Bloodwork and UA obtained. In the ED course the patient was given IV fluids and IV Protonix. Guaiac was negative, vital signs are stable. Patient is to be discharged home. Patient prescribed Protonix and instructed to follow up w/ [facility] as soon as possible. If patient experiences any vomiting or rectal bleeding he is instructed to come back to ED immediately. The patient is agreeable with this plan. - Diagnoses Differential Diagnoses - Male: Other - gi bleeding/vomiting Provider Diagnoses: GI bleed, Peptic ulcer disease Discharge - Sign-Out/Discharge Documenting (check all that apply): Discharge - discharged home - Discharge Plan Condition: Stable Disposition: HOME Prescriptions: Pantoprazole TAB (NF) [Protonix TAB (NF)] 40 mg PO DAILY #30 tab Patient Education Materials: Peptic Ulcer (ED), Gastrointestinal Bleeding (ED) Referrals: No Primary Care Phys,NOPCP [Primary Care Provider] - Additional Instructions: Patient instructed to follow up with [facility] as soon as possible. If patient experiences any vomiting or rectal bleeding he is instructed to come back to ED immediately. - Billing Disposition and Condition Condition: STABLE Disposition: HOME The documentation as recorded by the Marry campbell Elizabeth accurately reflects the service I personally performed and the decisions made by Shandra day Emmanuel.
[2017-11-10 14:33] VITALS: BP 119/69
== END 2017-11-10 14:32 | disposition home or self-care (01) ==
LOC: ED 10:29
DX: K27.4 Chronic or unspecified peptic ulcer, site unspecified, with hemorrhage (principal); K21.9 Gastro-esophageal reflux disease without esophagitis; Z88.8 Allergy status to other drugs, medicaments and biological substances; Z72.0 Tobacco use
CPT/HCPCS: 36415; 80053; 82272; 83605; 83690; 85025; 85610; 85730; 86850; 86900; 86901; 96361; 96374; 99282